=== PATIENT | male | born 1960 | race Caucasian/White ===

== ENCOUNTER 2016-04-03 18:27 | Emergency (ER) | payer BC, OTHER ==
[2016-04-03] MEDS ORDERED: RANITIDINE 150 MG TAB PO ONE (19:17)
[2016-04-03] MEDS ORDERED: METHYLPREDNISOLONE 125 MG/2 ML VIAL IM ONE (19:17)
[2016-04-03] MEDS ORDERED: DIPHENHYDRAMINE 25 MG CAP PO ONE (19:17)
--- NOTE | 2016-04-03 19:22 | EDPRACDOC ---
- General Information Chief Complaint: Drug-Induced Skin Rash Stated Complaint: RASH Time Seen by Provider: 04/03/16 19:12 Information Source: Patient Mode Of Arrival: Car Home Medications: Home Medications Aspirin (OrangeEnteric Coated) [Ecotrin] 325 mg PO DAILYWM #30 tablet 07/03/14 Digoxin [Lanoxin, Digitek] 0.25 mg PO QAM #30 tablet 07/03/14 Diltiazem HCl [Cardizem Cd] 180 mg PO DAILY 09/18/15 Hydrocodone Bit/Acetaminophen [[place] 10-325 Tablet] 1 tab PO Q4H PRN 01/02/16 Methylprednisolone [Medrol] 4 mg PO DAILY #1 tab.ds.pk 04/03/16 Allergies/Adverse Reactions: Allergies Allergy/AdvReac Type Severity Reaction Status Date / Time No Known Allergies Allergy Verified 01/02/16 15:33 - History of Present Illness Onset: YESTERDAY HPI: PT PRESENTS WITH GENERALIZED RASH. STATES HE IS FINISHING TAKING BACTRIM WHICH WAS GIVEN FOR URI. STATES THE RASH ITCHES. DENIES SHOB. NO ACUTE DISTRESS NOTED. 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 Denies: Diabetes - Social Medical History Smoking Status: Never smoker EDM Review of Systems - Review of Systems ROS Negative Except as Marked: Yes All systems reviewed and were negative except as marked - Physical Exam Constitutional: Alert Oriented to: Time, Person, Place Last recorded Vital Signs: Last Vital Signs Temp 98.3 F 04/03/16 19:08 Pulse 92 04/03/16 19:08 Resp 18 04/03/16 19:08 BP 139/84 04/03/16 19:08 Pulse Ox 96 04/03/16 19:08 Oxygen Pulse Oxygen Saturation 96 O2 Device Oxygen Flow Rate Fraction of Inspired Oxygen ( FIO2) - HEENT Head: Normal ( normocephalic) Eye Exam: Normal (PERRL, EOMI, Sclera white) Oropharynx: Normal (Pharynx:Moist without exudate,Gums-no swelling) Nose: No Symptoms Reported (septum midline) Neck: Normal (FROM, trachea at midline) - Respiratory/Cardiovascular Respiratory: Normal - CTA (BBS clear to auscultation without adventitious sounds ) Cardiovascular: Normal (RRR without murmur, gallop or rub) - GI Auscultation: Normal (NABS) Palpation: Normal (Soft,No rebound or guarding, non distended) Tenderness: Non tender Childress's Sign: Negative - Musculoskeletal Back: Normal (Non-Tender) Extremities: Normal (Normal tone, Pulses 2+ No cyanosis or edema, FROM) - Integumentary Skin: Normal, Warm, Dry, Rash (RED, PURITIC) Lymphatics: Normal (no adenopathy) - Neurologic Memory Impaired: Normal Motor Function: Normal (Normal tone, Pulses 2+ No cyanosis or edema, FROM) Cranial Nerve: Normal (CN II-X11 intact sensation, strength 5/5) Cerebellar: Normal Mood Description: Normal Perception: Normal - Differential Diagnosis Other Decision Time to Discharge: 19:26 - Departure Disposition: Home Condition: Stable Final Diagnosis: Drug reaction Instructions: Adverse Drug Reaction (ED) Education/Counseling Given To: Patient Education/Counseling Given Regarding: Diagnosis, Treatment, Prognosis, Follow Up Referrals: Wallace Sadnerson II, MD [Staff Physician] - One Week Prescriptions: Methylprednisolone [Medrol] 4 mg PO DAILY #1 tab.ds.pk Additional Instructions: TAKE BENADRYL 25MG BY MOUTH EVERY 6 HOURS FOR THE NEXT 48 HOURS. TAKE ZANTAC 150MG BY MOUTH FOR THE NEXT 5 DAYS. TAKE ALL OF THE STEROID PACK. FOLLOW UP WITH PCP NEXT WEEK. RETURN TOT HE ED FOR WORSENING SYMPTOMS OR CONCERNS
[2016-04-03 19:26] VITALS: BP 139/84; PULSE 92; TEMP 98.3; BMI 30.5
== END 2016-04-03 19:38 | disposition home or self-care (01) ==
LOC: EDMC 18:27
DX: T50.905A Adverse effect of unspecified drugs, medicaments and biological substances, initial encounter (principal)
CPT/HCPCS: 96372; 99283; J2930; J3490